=== PATIENT | male | born 1970 | race Caucasian/White ===

== ENCOUNTER 2018-09-01 14:19 | Emergency (ER) | payer OTHER ==
[~2018-09-01] VITALS: Ht 175.3 cm; Wt 113.4 kg
[2018-09-01] MEDS ORDERED: HYDROMORPHONE 1 MG/1 ML DISP.SYRIN IM ONE ×2 (15:00→17:45)
[2018-09-01] MEDS ORDERED: diphenhydrAMINE 50 MG/1 ML VIAL IM ONE (15:00)
[2018-09-01] MEDS ORDERED: HYDROMORPHONE 2 MG/1 ML DISP.SYRIN ONE ×2 (15:02→17:49)
[2018-09-01] MEDS ORDERED: diphenhydrAMINE 50 MG/1 ML VIAL ONE (15:02)
--- NOTE | 2018-09-01 15:04 | NUR ---
PT IS IN BED #2B. DR PUCKETT EVALUATED THE PT.
[2018-09-01] MEDS ORDERED: KETAMINE HCL 500 MG/10 ML INJ IM ONE (16:15)
[2018-09-01] MEDS ORDERED: KETAMINE HCL 500 MG/10 ML INJ ONE (16:16)
--- NOTE | 2018-09-01 18:57 | NUR ---
PT WAS D/C'd TO HOME. D/C INSTRUCTIONS GIVEN TO THE PT. GAIT IS STABLE. PT DENIES PAIN.
[2018-09-01 18:58] VITALS: BP 134/81
== END 2018-09-01 18:59 | disposition home or self-care (01) ==
LOC: ER 14:19
DX: M54.41 Lumbago with sciatica, right side (principal); N18.9 Chronic kidney disease, unspecified; Z88.1 Allergy status to other antibiotic agents
CPT/HCPCS: 96372 ×3; 99283; J1170 ×2; J1200; J3490; A4663

== ENCOUNTER 2018-09-27 13:46 | Emergency (ER) | payer OTHER ==
[~2018-09-27] VITALS: Ht 175.3 cm; Wt 113.4 kg
[2018-09-27] MEDS ORDERED: HYDROMORPHONE 1 MG/1 ML DISP.SYRIN IM ONE (14:45)
[2018-09-27] MEDS ORDERED: HYDROMORPHONE 2 MG/1 ML DISP.SYRIN ONE (14:45)
[2018-09-27] MEDS ORDERED: ONDANSETRON ODT 4 MG TAB.RAPDIS ONE (14:45)
[2018-09-27] MEDS ORDERED: ONDANSETRON ODT 4 MG TAB.RAPDIS SL ONE (14:45)
[2018-09-27 15:12] VITALS: BP 102/72
--- NOTE | 2018-09-27 15:14 | NUR ---
Pt. physically dcd by Tanesha Mcadams. left room ambulatory pain well controlled
== END 2018-09-27 15:15 | disposition home or self-care (01) ==
LOC: ER 13:46
DX: M54.41 Lumbago with sciatica, right side (principal); Z88.1 Allergy status to other antibiotic agents
CPT/HCPCS: 96372; 99283; J1170; A4663; Q0162

== ENCOUNTER 2019-01-19 12:39 | Emergency (ER) | payer OTHER ==
[~2019-01-19] VITALS: Ht 175.3 cm; Wt 113.4 kg
--- NOTE | 2019-01-19 12:56 | NUR ---
PT IS IN ROOM #2B, DR DORSEY EVALUATED THE PT.
[2019-01-19] MEDS ORDERED: HYDROMORPHONE 1 MG/1 ML DISP.SYRIN IM ONE (13:30)
[2019-01-19] MEDS ORDERED: HYDROMORPHONE 1 MG/1 ML DISP.SYRIN ONE (13:33)
--- NOTE | 2019-01-19 14:10 | NUR ---
PT WAS D/C'd TO HOME. D/C INSTRUCTIONS GIVEN TO THE PT BY DR DORSEY.
[2019-01-19 14:15] VITALS: BP 142/77
== END 2019-01-19 14:15 | disposition home or self-care (01) ==
LOC: ER 12:39
DX: G89.29 Other chronic pain (principal); M54.5 Low back pain; Z88.1 Allergy status to other antibiotic agents
CPT/HCPCS: 96372; 99283; J1170; A4663

== ENCOUNTER 2019-07-09 09:10 | Inpatient (IN) | payer OTHER ==
[~2019-07-09] VITALS: Ht 167.6 cm; Wt 90.7 kg
[2019-07-09] MEDS ORDERED: PROP20TA7 PO (09:55)
[2019-07-09] MEDS ORDERED: PARO30TA74 PO (09:55)
[2019-07-09] MEDS ORDERED: BUPR150T5 PO (09:55)
[2019-07-09] MEDS ORDERED: OXYC-451 PO (09:55)
[2019-07-09] MEDS ORDERED: OXYCODONE/APAP 5-325 MG TABLET PO ONE (10:00)
--- NOTE | 2019-07-09 10:23 | NUR ---
[facility] WAS CALLED TO FAX PT's 07/08/19 VISIT INFORMATION TO [facility] ER. PT's CONSENT TO RELEASE INFORMATION WAS FAXED TO [facility] DEBURRING MACHINE OPERATOR.
[2019-07-09 10:27] LABS: BASOPHILS % (AUTO) 0.4 % (0.0-2.0); EOSINOPHILS # (AUTO) 0.2 K/uL (0.0-0.7); EOSINOPHILS % (AUTO) 3.7 % (0.0-7.0); HEMATOCRIT 37.5 % (36.7-47.1); HEMOGLOBIN 12.8 g/dL (12.5-16.3); LYMPHOCYTES # (AUTO) 1.1 K/uL (20.0-40.0); LYMPHOCYTES % (AUTO) 16.6 % (20.5-51.5); MEAN CORPUSCULAR HGB CONC 34 g/dL (32.5-36.3); MEAN CORPUSCULAR VOLUME 90.7 fL (73.0-96.2); MONOCYTES # (AUTO) 0.4 K/uL (2.0-10.0); MONOCYTES % (AUTO) 6.2 % (0.0-11.0); NEUTROPHILS # (AUTO) 4.8 K/uL (1.8-8.9); NEUTROPHILS % (AUTO) 73.1 % (38.5-71.5); PLATELET COUNT (AUTO) 187 K/uL (152-348); RED BLOOD CELL COUNT(AUTO) 4.14 MIL/uL (4.06-5.63); WHITE BLOOD COUNT (AUTO) 6.5 K/uL (3.6-10.2)
[2019-07-09 10:31] LABS: CREATININE 1.2 mg/dL (0.6-1.3); POTASSIUM 3.2 mmol/L (3.5-5.1)
[2019-07-09] MEDS ORDERED: OXYCODONE/APAP 5-325 MG TABLET ONE (10:31)
--- NOTE | 2019-07-09 10:36 | NUR ---
pt is in room #2a. dr gomez evaluated the pt.
[2019-07-09 10:42] LABS: BILIRUBIN,TOTAL 0.6 mg/dL (0.2-1.0); TOTAL PROTEIN, SERUM 6.6 g/dL (6.4-8.2)
[2019-07-09] MEDS ORDERED: ENOXAPARIN SODIUM 80 MG/0.8 ML DISP.SYRIN SQ ONE ×2 (11:30→11:47)
[2019-07-09] MEDS ORDERED: POTASSIUM CHLORIDE 20 MEQ TAB.PRT.SR PO ONE (14:00)
[2019-07-09] MEDS ORDERED: MAGNESIUM HYDROXIDE 30 ML LIQUID UDC PO PRN (14:00)
[2019-07-09] MEDS ORDERED: ONDANSETRON 4 MG/2 ML VIAL IV PRN (14:00)
[2019-07-09] MEDS ORDERED: ACETAMINOPHEN 325 MG TABLET PO PRN (14:00)
[2019-07-09] MEDS ORDERED: ZOLPIDEM 5 MG TABLET PO PRN (14:00)
--- NOTE | 2019-07-09 14:26 | NUR ---
report was given to recruiting intern. pt was transfered to room #210.
[2019-07-09 14:42] VITALS: BP 140/96
[2019-07-09 15:00] VITALS: BP 140/93
[2019-07-09] MEDS: NICOTINE 14 MG/24HR PATCH TD SCH (15:07)
[2019-07-09] MEDS: OXYCODONE/APAP 5-325 MG TABLET PO PRN (15:08)
[2019-07-09 15:46] LABS: CREATINE KINASE, TOTAL 209 U/L (39-308); LACTATE DEHYDROGENASE 525 U/L (85-227)
[2019-07-09 16:44] LABS: FERRITIN 2877 ng/mL (26-388)
--- NOTE | 2019-07-09 19:30 | NUR ---
RECEIVED PT IN NO ACUTE RESPIRATORY DISTRESS. PT ALERT AND ORIENTEDX4. IV INTACT. SAFETY AND COMFORT PROVIDED. WILL CONTINUE TO MONITOR.
[2019-07-09 20:17] VITALS: BP 140/96
[2019-07-09] MEDS: PROPRANOLOL HCL 20 MG TABLET PO SCH (21:08)
[2019-07-09] MEDS: PAROXETINE HCL 20 MG TABLET PO SCH (21:08)
[2019-07-09] MEDS: buPROPion SR 150 MG TABLET.SA PO SCH (21:08)
[2019-07-09] MEDS: MORPHINE SULFATE 2 MG/1 ML DISP.SYRIN IV PRN (21:09)
[2019-07-09] MEDS: ENOXAPARIN SODIUM 100 MG/ML DISP.SYRIN SQ SCH (21:11)
[2019-07-10 00:55] VITALS: BP 118/75
[2019-07-10] MEDS: MORPHINE SULFATE 2 MG/1 ML DISP.SYRIN IV PRN (02:26)
[2019-07-10] MEDS: OXYCODONE/APAP 5-325 MG TABLET PO PRN ×5 (03:46→21:30)
[2019-07-10 04:51] VITALS: BP 99/60
--- NOTE | 2019-07-10 06:28 | NUR ---
PT SLEPT INTERMITTENTLY. PT IN NO ACUTE RESPIRATORY DISTRESS. IV INTACT. PRESCRIBED MEDICATION GIVEN AND PT TOLERATED IT WELL.. PT GIVEN MORPHINE AT 2109H AND 0226H FOR 8/10 PAIN ON HIS BACK. PT ALSO GIVEN 0346H FOR BACK PAIN.PT TOLERATED IT WELL. PT WANTS PERCOCET MEDICATION RATHER THAN MORPHINE. SAFETY AND COMFORT PROVIDED. ALL NEEDS ARE MET. WILL ENDORSE TO INCOMING NURSE FOR CONTINUITY OF CARE.
--- NOTE | 2019-07-10 07:10 | NUR ---
Lab called and the result for covid test is negative.Incoming nurse aware.
--- NOTE | 2019-07-10 08:30 | NUR ---
ROSEMARY SUB MASTER HERE TO SEE PATIENT HE IS AWARE OF NEGATIVE COVID RESULT WITH NO NEW ORDERS AT THIS TIME PENDING TRANSFER OUT TO THIRD FLOOR
[2019-07-10] MEDS: PROPRANOLOL HCL 20 MG TABLET PO SCH ×2 (09:00→21:00)
[2019-07-10] MEDS: PAROXETINE HCL 20 MG TABLET PO SCH ×2 (09:37→22:01)
[2019-07-10] MEDS: NICOTINE 14 MG/24HR PATCH TD SCH (09:37)
[2019-07-10] MEDS: buPROPion SR 150 MG TABLET.SA PO SCH ×2 (09:38→22:01)
[2019-07-10] MEDS: ENOXAPARIN SODIUM 100 MG/ML DISP.SYRIN SQ SCH ×2 (09:43→22:04)
[2019-07-10 11:08] LABS: BASOPHILS % (AUTO) 0.6 % (0.0-2.0); EOSINOPHILS # (AUTO) 0.2 K/uL (0.0-0.7); EOSINOPHILS % (AUTO) 4.7 % (0.0-7.0); HEMATOCRIT 36.1 % (36.7-47.1); HEMOGLOBIN 12.7 g/dL (12.5-16.3); LYMPHOCYTES # (AUTO) 1.3 K/uL (20.0-40.0); LYMPHOCYTES % (AUTO) 32.9 % (20.5-51.5); MEAN CORPUSCULAR HEMOGLOBIN 31.6 uug (23.8-33.4); MEAN CORPUSCULAR HGB CONC 35 g/dL (32.5-36.3); MEAN CORPUSCULAR VOLUME 90.1 fL (73.0-96.2); MONOCYTES # (AUTO) 0.4 K/uL (2.0-10.0); MONOCYTES % (AUTO) 9.4 % (0.0-11.0); NEUTROPHILS % (AUTO) 52.4 % (38.5-71.5); PLATELET COUNT (AUTO) 180 K/uL (152-348); RED BLOOD CELL COUNT(AUTO) 4.01 MIL/uL (4.06-5.63); WHITE BLOOD COUNT (AUTO) 3.9 K/uL (3.6-10.2)
[2019-07-10 11:42] LABS: BILIRUBIN,TOTAL 0.4 mg/dL (0.2-1.0); CREATININE 1.2 mg/dL (0.6-1.3); MAGNESIUM 1.8 mg/dL (1.8-2.4); PHOSPHOROUS 2.7 mg/dL (2.5-4.9); POTASSIUM 3.3 mmol/L (3.5-5.1); TOTAL PROTEIN, SERUM 6.2 g/dL (6.4-8.2)
[2019-07-10 12:02] VITALS: BP 128/74
--- NOTE | 2019-07-10 12:26 | NUR ---
MEDICAL AIDES TEACHER FOR ID HERE TO SEE PATIENT WITH NO NEW ORDERS AT THIS TIME
[2019-07-10 16:02] VITALS: BP 163/79
[2019-07-10 16:30] VITALS: BP 134/85
--- NOTE | 2019-07-10 19:30 | NUR ---
RECEIVED PT ALERT AND AWAKE AND ORIENTEDX4. PT IN NO ACUTE DISTRESS. PT FRUSTRATED AND ANXIOUS WANTS TO BE TRANSFERRED ON NONCOVID FLOOR. SAFETY AND COMFORT PROVIDED.WILL CONTINUE TO MONITOR.
[2019-07-10 20:38] VITALS: BP 125/74
--- NOTE | 2019-07-10 21:07 | NUR ---
horizontal boring mill set up operator ordered patient to be transferred to med surg floor on tele.
--- NOTE | 2019-07-10 21:30 | NUR ---
Percocet given to pt back back pain and leg pain. Pt tolerated it well. Will continue to monitor.
--- NOTE | 2019-07-10 22:28 | NUR ---
REPORT GIVEN TO THIRD FLOOR NURSE.
[2019-07-11 00:20] VITALS: BP 141/94
--- NOTE | 2019-07-11 00:30 | NUR ---
PT WHEELED OUT FROM 2ND FLOOR VIA WHEELCHAIR. PT IN NO ACUTE DISTRESS. RN AND HYDROELECTRIC MACHINERY MECHANIC HELPER ACCOMPANIED THE PT INTO HIS ROOM IN 321.
--- NOTE | 2019-07-11 00:45 | NUR ---
RECD PT FR 2ND FLOOR VIA W/C ACCOMPANIED BY PRIMARY NURSE, ALERT ORIENTED X 4, NO ACUTE DISTRESS NOTED.NO COMPLAINTS OF PAIN PRESENTED, NEEDS ATTENDED TO,IV SITE ON LEFT UPPER ARM G 22PATENT AND INTACT. ON TELE SINUS R.VOIDED FREELY WELL, USING URINAL.INSTRUCTED..RE PULM. EMBOLISM,ABLE TO DEMONSTRATE UNDERSTANDING.
[2019-07-11] MEDS: OXYCODONE/APAP 5-325 MG TABLET PO PRN ×6 (02:10→22:34)
--- NOTE | 2019-07-11 02:10 | NUR ---
FACIAL GRIMACE NOTED, REQUESTING PERCOCET FOR BACK PAIN, MEDICATED W/ PERCOCET 2 TABLETS , REPOSITIONED FOR COMFORT. SLEPT AT SHORT INTERVALS.
[2019-07-11 04:00] VITALS: BP 131/83
--- NOTE | 2019-07-11 04:15 | NUR ---
pt requesting for a more stronger pain med, TOM CORCORAN MADE AWARE BUT DIDNT ORDER ANYTHING AFTER ASCERTAINING PT 'S CONDITION.
[2019-07-11 06:27] LABS: BASOPHILS % (AUTO) 0.4 % (0.0-2.0); EOSINOPHILS # (AUTO) 0.2 K/uL (0.0-0.7); EOSINOPHILS % (AUTO) 4.5 % (0.0-7.0); HEMATOCRIT 34.7 % (36.7-47.1); HEMOGLOBIN 12.1 g/dL (12.5-16.3); LYMPHOCYTES # (AUTO) 1.8 K/uL (20.0-40.0); LYMPHOCYTES % (AUTO) 37.5 % (20.5-51.5); MEAN CORPUSCULAR HEMOGLOBIN 31.5 uug (23.8-33.4); MEAN CORPUSCULAR HGB CONC 35 g/dL (32.5-36.3); MEAN CORPUSCULAR VOLUME 90.7 fL (73.0-96.2); MONOCYTES # (AUTO) 0.3 K/uL (2.0-10.0); MONOCYTES % (AUTO) 5.6 % (0.0-11.0); NEUTROPHILS # (AUTO) 2.5 K/uL (1.8-8.9); PLATELET COUNT (AUTO) 188 K/uL (152-348); RED BLOOD CELL COUNT(AUTO) 3.82 MIL/uL (4.06-5.63); WHITE BLOOD COUNT (AUTO) 4.8 K/uL (3.6-10.2)
[2019-07-11 07:30] LABS: CREATININE 1.3 mg/dL (0.6-1.3); POTASSIUM 3.4 mmol/L (3.5-5.1)
[2019-07-11 08:00] VITALS: BP 153/80
--- NOTE | 2019-07-11 08:00 | NUR ---
received awake alert and oriented, states pain is tolerable at this time, tele SR 70's no shortness of breath noted, explained plan of care- verbalized understanding, needs attended to, safety measures maintained, call light within reach
[2019-07-11] MEDS: buPROPion SR 150 MG TABLET.SA PO SCH ×2 (08:52→22:10)
[2019-07-11] MEDS: PAROXETINE HCL 20 MG TABLET PO SCH ×2 (08:53→22:09)
[2019-07-11] MEDS: PROPRANOLOL HCL 20 MG TABLET PO SCH ×2 (08:54→21:00)
[2019-07-11] MEDS: NICOTINE 14 MG/24HR PATCH TD SCH (08:54)
[2019-07-11] MEDS: ENOXAPARIN SODIUM 100 MG/ML DISP.SYRIN SQ SCH ×2 (09:24→21:00)
--- NOTE | 2019-07-11 10:15 | NUR ---
medicated with percocet 2 tabs as ordered for pain, informed of d/c plan- case management will talk to him
[2019-07-11] MEDS ORDERED: RIVA20TA PO (11:15)
[2019-07-11] MEDS ORDERED: OXYC-128 PO (11:15)
[2019-07-11] MEDS ORDERED: MORPHINE SULFATE 2 MG/1 ML DISP.SYRIN IV ONE (11:15)
[2019-07-11] MEDS ORDERED: RIVA10TA PO (11:15)
[2019-07-11] MEDS ORDERED: POTASSIUM CHLORIDE 20 MEQ TAB.PRT.SR PO ONE (11:30)
--- NOTE | 2019-07-11 13:30 | NUR ---
seen by PT and cardiac care unit nurse and case management spoke to him via phone, tele d/cd as ordered-
[2019-07-11 15:24] VITALS: BP 144/88
--- NOTE | 2019-07-11 18:40 | NUR ---
no distress noted, all needs attended and met, asked pain med q 4h and medicated, safety measures maintained, call light within each
[2019-07-11 20:57] VITALS: BP 123/74
[2019-07-12] MEDS: OXYCODONE/APAP 5-325 MG TABLET PO PRN ×6 (02:31→22:34)
[2019-07-12 03:54] VITALS: BP 123/73
--- NOTE | 2019-07-12 04:51 | NUR ---
No acute events overnight, pt is alert and oriented x4. No fever, no nausea and no vomiting. No diarrhea. Pt receiving Percocet 10mg Q4h as needed. will continue to monitor.
[2019-07-12 07:36] LABS: CREATININE 1.3 mg/dL (0.6-1.3); POTASSIUM 4.1 mmol/L (3.5-5.1)
[2019-07-12] MEDS: PAROXETINE HCL 20 MG TABLET PO SCH ×2 (09:32→20:40)
[2019-07-12] MEDS: buPROPion SR 150 MG TABLET.SA PO SCH ×2 (09:33→20:39)
[2019-07-12] MEDS: NICOTINE 14 MG/24HR PATCH TD SCH (09:34)
[2019-07-12] MEDS: PROPRANOLOL HCL 20 MG TABLET PO SCH ×2 (09:38→20:41)
[2019-07-12] MEDS: ENOXAPARIN SODIUM 100 MG/ML DISP.SYRIN SQ SCH (09:46)
[2019-07-12] MEDS ORDERED: HYDROCORTISONE 1% CREAM 30 GM TUBE TP PRN (11:45)
--- NOTE | 2019-07-12 12:02 | NUR ---
TROUT FARMER CONSULTATION: 11:25am: SW completed a phone assessment with this patient, by contacting the patient on his hospital room phone. Patient is a 48 year old male. Patient was receptive to speaking with this SW, cooperative, oriented x 4. Patient provided medical and social history. Patient moved to [place] 3 years ago, he is originally from [place]. Patient's parents still reside in [place]. Patient discussed his medical history, reporting that his current medical problems include chronic pain and sciatica, along with a pulmonary embolism. Patient stated that his pain has been debilitating and has resulted in him being in a wheelchair for the past 6 months. Patient reported that upon arrival to [place], he was living in a hotel on [address] but due to ongoing medical problems he had been in and out of SNF's over the past year or so, and eventually lost his place of residence on [address]. Patient states he was recently in a SNF, and left [place]. Patient reported seeking medical care at [facility] prior to current hospitalization, and testing positive for COVID-19, however current medical records indicate patient testing negative for COVID-19. Patient expressed being in agreement with being be placed in a SNF because he wants to be able to get some physical therapy at the SNF in order to return to his previous level of functioning and ambulating. Patient has [employer], and reports that he recently applied for disability, but that his application is still pending. Patient reports no other source of income at this time. Patient reports smoking a couple of packs of cigarettes per week, and the occasional use of alcohol. No SI or HI. Patient's speech is clear, tone of voice, thought process and thought content are appropriate. SW informed the patient that SW will instruct case management to provide the patient with some community resources upon discharge, and patient agreed. Patient asked SW if SW knew which SNF patient would be discharged to, and SW stated that case management was working on patient's discharge plans, in coordination with patient's insurance, and that case management would notify the patient as soon as a placement was secured. Patient expressed understanding and agreement. Patient thanked STEFANIA for her time and information provided. STEFANIA then spoke with post manager Janki and informed her of above. STEFANIA asked KATELYN Shearer to provide patient with the homeless resource packet upon discharge, and Janki expressed agreement. CM Janki also stated that as soon as a SNF was secured for the patient, that KATELYN Shearer or KATELYN Jackman would let the patient know. No further SS interventions needed at this time. Case management to work with the patient to ensure a safe discharge plan..
--- NOTE | 2019-07-12 13:18 | NUR ---
Pt received, no acute distress, able to make needs known. C/O pain 10/08, PRN Percocet 10 mg administered per PRN orders. Reports effective, still requests PRN pain medication to be necessary Q4hr as available. Plan of care discussed with MD and Pt regarding pain management and placement needed. Pt seen by MD. New orders received. Xarelto 15mg PO Q12hr x21 Days to start in preparation of D/C. Pt reports Left ankle to be itchy. PRN Hydrocortisone cream ordered. All comfort and safety measures implemented. Call light within reach. Will continue to monitor.
[2019-07-12 16:07] VITALS: BP 164/68
[2019-07-12 20:18] VITALS: BP 112/71
[2019-07-12] MEDS: RIVAROXABAN 15 MG TABLET PO SCH (20:44)
--- NOTE | 2019-07-12 21:32 | NUR ---
resting in bed watching TV upon initial rounds. AAOx4 No acute distress noted. Needs attended. VSS. On xarelto 15 mg q12hr given as scheduled. Continent of bowel and bladder. Voiding in urinal. No BM noted this shift. Will monitor patient. Pain meds given as needed for chronic back pain/sciatica. On fall precautions.
[2019-07-13] MEDS: OXYCODONE/APAP 5-325 MG TABLET PO PRN ×6 (02:29→23:05)
[2019-07-13 05:08] VITALS: BP 123/72
--- NOTE | 2019-07-13 06:28 | NUR ---
End of shift note: Quiet night. aaox4 pain meds given as needed. VSS. will monitor patient. No acute distress noted. Fall precautions maintained. Siderails up for safety.
[2019-07-13] MEDS ORDERED: MORPHINE SULFATE 2 MG/1 ML DISP.SYRIN IV ONE (08:45)
[2019-07-13] MEDS: PROPRANOLOL HCL 20 MG TABLET PO SCH ×2 (09:00→21:10)
[2019-07-13] MEDS: PAROXETINE HCL 20 MG TABLET PO SCH ×2 (09:43→21:05)
[2019-07-13] MEDS: buPROPion SR 150 MG TABLET.SA PO SCH ×2 (09:44→21:05)
[2019-07-13] MEDS: RIVAROXABAN 15 MG TABLET PO SCH ×2 (09:53→21:07)
[2019-07-13] MEDS: NICOTINE 14 MG/24HR PATCH TD SCH (09:53)
[2019-07-13 11:32] VITALS: BP 113/60
--- NOTE | 2019-07-13 14:30 | NUR ---
Called and spoke with the patient and updated him on his discharge plans.
--- NOTE | 2019-07-13 15:03 | NUR ---
Patient continue pain management for chronic back. Patient given morphine 2ml injection once as ordered by NANCY Pardo. Patient continue on Percocet 5-325mg, 2 tablet every 4 hours PRN-given. not in distress.will continue monitor
[2019-07-13 16:00] VITALS: BP 126/73
[2019-07-13 21:04] VITALS: BP 133/53
[2019-07-14] MEDS: OXYCODONE/APAP 5-325 MG TABLET PO PRN ×5 (03:00→19:20)
[2019-07-14 04:34] VITALS: BP 121/77
--- NOTE | 2019-07-14 06:45 | NUR ---
Patient slept intermittently. No SOB. c/o of chronic back pain, PRN Percocet 5-325mg 2 tabs given Q4 as requested by patient. All needs attended. Will endorse accordingly
[2019-07-14] MEDS: buPROPion SR 150 MG TABLET.SA PO SCH ×2 (08:07→21:12)
[2019-07-14] MEDS: PAROXETINE HCL 20 MG TABLET PO SCH ×2 (08:07→21:11)
[2019-07-14] MEDS: NICOTINE 14 MG/24HR PATCH TD SCH (08:07)
[2019-07-14] MEDS: PROPRANOLOL HCL 20 MG TABLET PO SCH ×2 (08:20→21:11)
[2019-07-14] MEDS: RIVAROXABAN 15 MG TABLET PO SCH ×2 (08:21→21:13)
--- NOTE | 2019-07-14 10:17 | NUR ---
Received a call from [facility] and spoke with Fantasma for 9 minutes and explained the patient's discharge orders since Wednesday and trying to find SNF placement for the patient as longterm however, most SNF cannot accept the patient due to COVID lockdown, no male beds available and the patient does not want a discharge to himself or a skilled nursing. This groundskeeping maintenance worker also up-dated Fantasma with the skilled SNF denial by Zaira at [facility] and that the patient needed longterm SNF or skilled nursing with HH. Per Fantasma: he will reach out to the patient and assign him a social security specialist to assist in finding him a place to stay or skilled nursing or SNF. 1032am-A call was placed to the patient and spoke with him for almost 10 minutes and stated that he is also in contact with [facility] and [facility] and stated that he submitted grievance toward [facility]. And that he is currently on the line with a navigator. The patient was upset when this groundskeeping maintenance worker mentioned that a skilled nursing could also be an option according to Manual. Per pt: a skilled nursing is not an option for him. This report has acknowledged that he does not want a skilled nursing since his discharge on Wednesday however, skilled nursing is still a discharge option from his insurance representatives.
[2019-07-14 11:37] VITALS: BP 106/55
--- NOTE | 2019-07-14 13:08 | NUR ---
Spoke with Mirela from [facility] who stated that she would review the patient's inquiry and call back if they can accept the patient. Per Mirela: they are no longer contracted with [facility] however, if they can accept with patient it will be for skilled days and not [facility].
--- NOTE | 2019-07-14 13:28 | NUR ---
Received a call from Ashkan from [facility] [phone] and updated her on the patient's discharge situation. Per Ashkan: fax the patient's clinical inquire to DTS F:[phone] urgent request for the Hard to Place Team.
[2019-07-14 16:06] VITALS: BP 120/60
--- NOTE | 2019-07-14 16:22 | NUR ---
Placed a call to RICARDO Hawk @ [phone] opt 2., and was transferred to DTS line a left a message with Elizabeth.
[2019-07-14 20:53] VITALS: BP 131/79
--- NOTE | 2019-07-14 21:49 | NUR ---
OBTAINED ORDER FROM SELENA VEGA DNP TO CHANGE PERCOCET 5/325MG 2 TABS Q4HRS PRN TO Q6HRS PRN.
--- NOTE | 2019-07-14 22:00 | NUR ---
PATIENT MADE AWARE OF THE CHANGE OF FREQUENCY OF PERCOCET. PATIENT GOT UPSET AND ANXIOUS.
--- NOTE | 2019-07-15 00:15 | NUR ---
DR BOLA JEREZ MD TRAINING AND DEVELOPMENT REP, NOTIFIED REGARDING PATIENT'S REQUEST TO HAVE PAIN MED BE BACK TO Q4HRS. NO NEW ORDERS GIVEN.
--- NOTE | 2019-07-15 00:30 | NUR ---
PATIENT GOT DISTRAUGHT AND VERBALIZED FEELINGS OF FRUSTRATION. ACTIVE LISTENING PROVIDED. INSTRUCTED PATIENT TO GO BACK TO HIS ROOM BECAUSE HE WAS DISTURBING OTHER PATIENTS IN THE UNIT.
[2019-07-15] MEDS: OXYCODONE/APAP 5-325 MG TABLET PO PRN ×3 (01:21→18:03)
[2019-07-15 05:06] VITALS: BP 107/55
[2019-07-15] MEDS: buPROPion SR 150 MG TABLET.SA PO SCH ×2 (09:09→20:53)
[2019-07-15] MEDS: NICOTINE 14 MG/24HR PATCH TD SCH (09:09)
[2019-07-15] MEDS: MORPHINE SULFATE 2 MG/1 ML DISP.SYRIN IV PRN ×4 (09:09→22:17)
[2019-07-15] MEDS: PROPRANOLOL HCL 20 MG TABLET PO SCH ×2 (09:10→20:54)
[2019-07-15] MEDS: RIVAROXABAN 15 MG TABLET PO SCH ×2 (09:20→20:56)
[2019-07-15] MEDS: PAROXETINE HCL 20 MG TABLET PO SCH ×2 (09:21→20:53)
[2019-07-15 11:27] VITALS: BP 108/66
[2019-07-15 15:58] VITALS: BP 125/55
--- NOTE | 2019-07-15 20:00 | NUR ---
Received patient awake and oriented x 4. No acute distress noted. Patient is in room air. IV on the left AC, patent and intact. C/O generalized pain 6/10. Skin intact. Left toe swollen. Wheelchair is at bedside. Safety initiated. Call light within reach. Will continue to monitor.
[2019-07-15 20:25] VITALS: BP 133/60
--- NOTE | 2019-07-15 22:27 | NUR ---
PATIENT C/O PAIN IN THE RIGHT LEG. MORPHINE GIVEN, WILL CONTINUE TO MONITOR.
[2019-07-16] MEDS: OXYCODONE/APAP 5-325 MG TABLET PO PRN ×3 (00:05→14:11)
--- NOTE | 2019-07-16 00:11 | NUR ---
PATIENT C/O PAIN IN THE LOWER BACK 11/08. MEDICATION PERCOCET GIVEN, WILL CONTINUE TO MONITOR.
[2019-07-16] MEDS: MORPHINE SULFATE 2 MG/1 ML DISP.SYRIN IV PRN ×4 (02:14→14:11)
[2019-07-16 05:10] VITALS: BP 129/57
--- NOTE | 2019-07-16 05:27 | NUR ---
Patient slept intermittently t/o shift. Patient c/o pain in the lower back. Medication given with little effect. Safety and comfort measures maintained t/o shift. Vital signs stable. Good urine output. All meds given as ordered. All needs met.
[2019-07-16] MEDS: NICOTINE 14 MG/24HR PATCH TD SCH (08:18)
[2019-07-16] MEDS: RIVAROXABAN 15 MG TABLET PO SCH (08:18)
[2019-07-16] MEDS: buPROPion SR 150 MG TABLET.SA PO SCH (08:18)
[2019-07-16] MEDS: PAROXETINE HCL 20 MG TABLET PO SCH (08:19)
[2019-07-16 08:24] VITALS: BP 122/69
[2019-07-16] MEDS: PROPRANOLOL HCL 20 MG TABLET PO SCH (08:24)
--- NOTE | 2019-07-16 13:50 | NUR ---
11:22 Called [facility] [ ] and spoke to Josephine and she provided a list of Shelters available for the patient who is wheelchair bound. She confirmed that some of the shelters no longer need a warm handout because they are walk-in: [facility] [[address] [place] [address]; Intake hours Wednesday through Wednesday, 24 hours. The penitentiary hours are 4:00pm to 8:00am. Residents must leave the penitentiary at 5:45am and be present for roll call at 9:30pm.] [facility] [[address] [place] [address]; Wednesday through Wednesday, 8:30am; men line up as early as 6:00am to assure placement. [facility] - [[address] [place] [address]; 5:30p.m.; ext.[phone]] [facility] - [[address] [place] [address]; ] [facility] - [[phone] [place] [address]; [address] [place] [address]; or ] [facility] - [ [address] [place] [address]; ; 12:00 p.m. First-come, first-served basis] 12:41 Spoke to the patient and informed him that Dr. Charles will be discharging him. He declined the discharge and became very anxious stating that Janki, KATELYN/RN, was already in contact with his insurance and has made arrangements for him to go to a Sober Living Facility tomorrow. Informed him that Janki's notes does not say so and he started yelling and saying that we have no right to discharge him to a penitentiary. He then hung up. Updated charge lpn [Stewart], his RN [Zaki] and security [Gee] about his behavior. 13:02 Spoke to Janki about the Sober Living and she stated that she never said anything about having a sober living facility. She informed him that she has tried to reach out to the insurance company for help in placement because he refused penitentiary placement. The patient called this newspaper reporter and apologized stating he does not want any trouble but he will have someone from his insurance company call this newspaper reporter to confirm that they have a Sober Living facility assigned. 13:07 Called Ashkan from [facility] [ ] and left a message for a call back. 13:08 Called [facility] [ opt. 2] and spoke to Alta who confirmed that a request for help from Janki was faxed but there is no note about having a Sober Living facility for him. She reviewed the past week on the patient's attempt for discharge and she does show the patient refusing penitentiary placement. 13:21 Updated the patient that there is no Sober Living facility that is secured and explained to him that he will be financially liable if he stays in the hospital because he no longer needs acute care. When informed that he was refusing penitentiary, he yelled and stated that he was never asked to go to a penitentiary. Reminded him that Janki and Zaira, CM from [facility], spoke to him about discharging to a penitentiary with home health on 07/11/19, and he denied it ever happened. Janki also provided him with a Homeless Resource booklet the same day. He agreed to go to a penitentiary today and chose [facility] but requested transportation to be provided. When asked how he was travelling before hospitalization he stated he would call for Uber. He also wanted to make sure that he will leave the hospital with actual pain medications that was prescribed by the doctor. Informed him that we do not have a lab that fills Rx for patients but and actual Rx will be given to him and it will be up to him to go to a pharmacy. 13:22 Called Sonia, RN Dermatology Procedural Physician, for a taxi voucher and she agreed. 13:23 Informed the patient that a taxi voucher will be provided but he demanded to use Uber. He does not want a taxi and said that taxis are no longer available due to the Covid19 Pandemic. He demanded to use an Uber but informed him that the hospital does not have an Uber account. He then went on to complain that he saw the Rx that the MD left for him and he promised to give him more pain medication than what is written. Contacted Dr. Pardo and he said that he was very clear with him when he said that he is only giving him a couple of days worth of pain medication and he can follow-up with his out-patient MDs. Offered clothing but he declined. He just wanted to make sure he has all the medication that the pharmacy is keeping for him. 13:29 Called [facility] [ ] and confirmed that they are still providing service. 13:34 Stewart, charge lpn, called and stated that the patient was demanding to change the taxi voucher's destination address to say [facility]. Informed her that we can not and if he insists on going there, that means he is refusing penitentiary placement. He agreed with the penitentiary.
--- NOTE | 2019-07-16 14:45 | NUR ---
Pt left the floor via wheelchair for discharge with taxi. Discharge paperwork and homeless fdc resources discussed and provided to the pt. Pt verbalized understanding, but refused to sign any paperwork. PIV removed. Pt stable and nad noted upon discharge. Addendum: 07/16/19 at 1628 by CECILIO SOARES RN Pt left hospital without taxi voucher slip. Pt refused to take it and stated "I will pickle pumper my meds down the street and come back and call you to arrange for taxi pickle pumper". Phone number to [facility] and 3rd floor provided to the pt. Pt never returned call.
--- NOTE | 2019-07-16 16:23 | NUR ---
15:59 Received a call from Sindi from [facility] asking information on the patient's discharge. Apparently the patient called them and complained that he was discharged on the streets with nowhere to go. Informed her of the plan for him to go to a fdc, which he chose, and even provided him with a taxi voucher. She stated that the patient called them and informed them that he is taking the bus. Reassured her that he was given resources and there was a safe plan of discharge for him. Even provided him with the information of his PCP, Dr. Abbe Calero, for him to follow-up. She was thankful for the information and will try to contact the patient tomorrow. 16:04 Spoke to both Stewart and Zaki about the patient's taxi voucher. Stewart stated that the patient left without taking the voucher and he told her that he will return and tell us to call the taxi for him when he is ready.
== END 2019-07-16 14:45 | disposition home or self-care (01) | DRG 134 ==
LOC: ER 09:10 → TELE 13:04 → TELE3 07-10 23:52 → MEDSURG3 07-11 12:35
PROVIDERS: ADMIT Nurse Practitioner Acute Care; ATTEND Student in an Organized Health Care Education/Training Program
DX: I26.99 Other pulmonary embolism without acute cor pulmonale (principal); E44.0 Moderate protein-calorie malnutrition; E66.01 Morbid (severe) obesity due to excess calories; E88.09 Other disorders of plasma-protein metabolism, not elsewhere classified; K76.0 Fatty (change of) liver, not elsewhere classified; Z59.0 Homelessness; Z91.19 Patient's noncompliance with other medical treatment and regimen; E66.9 Obesity, unspecified; Z68.32 Body mass index [BMI] 32.0-32.9, adult; E87.6 Hypokalemia; G89.4 Chronic pain syndrome; F41.9 Anxiety disorder, unspecified; F32.9 Major depressive disorder, single episode, unspecified; I10 Essential (primary) hypertension; J31.0 Chronic rhinitis; L40.9 Psoriasis, unspecified; Z88.0 Allergy status to penicillin; R74.0 Nonspecific elevation of levels of transaminase and lactic acid dehydrogenase [LDH]; F17.210 Nicotine dependence, cigarettes, uncomplicated; Z86.718 Personal history of other venous thrombosis and embolism
CPT/HCPCS: 36415; 70030-TC; 71045; 83615; 83735; 84100; 85025; 85730; 86140; 87040; 93005; A4663; G0378; J1650; J2270; U0003-CS